=== PATIENT | female | born 1955 | race Caucasian/White ===

== ENCOUNTER → 2018-05-13 | Day surgery (SDC) | payer MEDICARE ==
[~2018-05-13] VITALS: Ht 167.6 cm; Wt 79.4 kg
[~2018-05-13] MED LIST: DARVOCET N 1001 TAB PO; PANTOPRAZOLE SO40 MG PO; PLAVIX75 MG PO; ZOLPIDEM TART10 MG PO
--- NOTE | ~2018-05-13 | O ---
[place], [place] OPERATIVE NOTE NAME: BEAR BARROW UNIT #: [id number] ROOM: DOCTOR: KATHE DELUCA MD BIRTHDATE: [birth year] DOS: 05/13/2018 PREOPERATIVE DIAGNOSIS: Cataract, right eye. POSTOPERATIVE DIAGNOSIS: Cataract, right eye. OPERATION: Extracapsular cataract extraction by phacoemulsification with posterior chamber intraocular lens implantation, right eye. ANESTHESIA: Monitored standby. OPERATIVE FINDINGS AND PROCEDURE: 2% Xylocaine topical anesthetic gel was applied to the eye in the preop area. The patient was taken to the operating room and prepped and draped in the standard fashion for sterile intraocular surgery. A time out procedure was performed verifying correct patient, correct site and corrects lens with Roma Deluca M.D. The operating microscope was swung into position and the lid speculum was inserted. Using a Mara paracentesis blade, a paracentesis was made through clear cornea. Viscoelastic was used to fill the anterior chamber. Using a metal keratome a 2.4 mm self-sealing clear corneal cataract incision was made temporally at the limbus. Using a pre-bent 25 gauge cystotome needle, a standard continuous curvilinear capsulorrhexis was performed. The anterior capsule was removed with forceps. The lens nucleus was hydrodissected and phacoemulsified in the posterior chamber. Cortical material was removed with the irrigation aspiration hand piece and the posterior capsule was then polished with a curet under irrigation. The posterior chamber and capsular bag were filled with viscoelastic. A posterior chamber intraocular lens manufactured by: [employer], Model #[id number], and 23.5 diopters in strength were then inserted into the posterior chamber and within the capsular bag using the lens cartridge and injector system. Viscoelastic was removed using the irrigation aspiration handpiece. The anterior chamber was filled with balanced salt solution through the paracentesis. Both the paracentesis site and cataract incisions were hydrated with BSS and verified to be water-tight and self-sealing. Cefuroxime 1 mg/0.1 mL was injected into the anterior chamber through the paracentesis site. The incision checked to be water-tight using a Weck-Simona sponge. The integrity of the cataract wound and ocular tension were checked. Lid speculum and drapes were removed. The patient was transferred from the operating room to the recovery room in satisfactory condition. [place], [place] OPERATIVE NOTE NAME: BEAR BARROW UNIT #: [id number] ROOM: DOCTOR: KATHE DELUCA MD BIRTHDATE: [birth year] KATHE DELUCA MD CM:OPRECORD:OPERATIVE NOTE 1008 [id number] KATHE DELUCA MD 05/13/18 1014 interface
[2018-05-13 08:45] VITALS: BP 157/81
[2018-05-13 10:05] VITALS: BP 146/85
[2018-05-13 10:20] VITALS: BP 160/92
[2018-05-13 10:34] VITALS: BP 152/77
== END | disposition home or self-care (01) ==
LOC: SDC 05-08 08:00
DX: H25.811 Combined forms of age-related cataract, right eye (principal); K21.9 Gastro-esophageal reflux disease without esophagitis; E78.5 Hyperlipidemia, unspecified; E66.9 Obesity, unspecified; Z68.28 Body mass index [BMI] 28.0-28.9, adult; Z88.0 Allergy status to penicillin; Z79.899 Other long term (current) drug therapy; Z86.73 Personal history of transient ischemic attack (TIA), and cerebral infarction without residual deficits; Z90.710 Acquired absence of both cervix and uterus; Z85.43 Personal history of malignant neoplasm of ovary; Z98.890 Other specified postprocedural states; Z83.3 Family history of diabetes mellitus; Z82.49 Family history of ischemic heart disease and other diseases of the circulatory system

== ENCOUNTER 2020-01-15 17:54 | Emergency (ER) | payer OTHER ==
[~2020-01-15] VITALS: Wt 86.2 kg
[2020-01-15 17:59] VITALS: BP 160/98
[2020-01-15 18:19] LABS: BASO # 0.1 10*3/uL (0.0-0.1); BASO % 1.2 % (0.0-1.0); EOS # 0.1 10*3/uL (0.0-0.4); EOS % 1.9 % (1.0-4.0); HEMATOCRIT 42.5 % (37.0-47.0); LYMPH # 1.5 10*3/uL (1.3-4.4); LYMPH % 21.4 % (27.0-41.0); MEAN CELL VOLUME 89.3 fl (81.0-99.0); MEAN CORPUSCULAR HGB 28.4 pg (27.0-31.0); MEAN CORPUSCULAR HGB CONC 31.8 g/dl (33.0-37.0); MEAN PLATELET VOLUME 11.5 fl (9.6-12.3); MONO # 0.5 10*3/uL (0.1-1.0); NEUT # 4.7 10*3/uL (2.3-7.9); NEUT % 68.2 % (47.0-73.0); PLATELET COUNT AUTOMATED 222 10*3/uL (130-400); RED BLOOD COUNT 4.76 10*6/uL (4.10-5.10); RED CELL DISTRI WIDTH 13.7 % (0-14.5); WHITE BLOOD COUNT 6.9 10*3/uL (4.8-10.8)
[2020-01-15 18:34] LABS: ALBUMIN 3.9 gm/dl (3.1-4.5); ALKALINE PHOSPHATASE 70 U/L (45-117); BUN 13 mg/dl (7-24); CHLORIDE 107 mmol/L (98-107); CREATININE 0.77 mg/dL (0.55-1.02); POTASSIUM 3.9 mmol/L (3.5-5.1); SGOT/AST 11 IU/L (3-35); SGPT/ALT 15 U/L (12-78); SODIUM 141 mmol/L (136-145); TOTAL PROTEIN 7.3 gm/dL (6.4-8.2)
[2020-01-15 19:37] LABS: BILIRUBIN Negative (Negative); BLOOD Trace-Lysed (Negative); CLARITY Cloudy (Clear); COLOR Yellow (Yellow); GLUCOSE Negative (Negative); KETONE Trace (Negative); LEUKO ESTERASE 1+ (Negative); NITRITE Negative (Negative); PH 5.5 (4.5-8.0); SPECIFIC GRAVITY 1.025 (1.001-1.030)
[2020-01-15 20:01] LABS: BACTERIA 2+; EPITHELIAL CELLS 41-50; MUCOUS 1+
[2020-01-15] MEDS ORDERED: CEPHALEXIN500 M1 PO (21:20)
[2020-01-15] MEDS ORDERED: PERCOCET 5-3251 EACH PO (21:20)
== END 2020-01-15 21:25 | disposition home or self-care (01) ==
LOC: ED 17:54
PROVIDERS: Student in an Organized Health Care Education/Training Program
DX: N39.0 Urinary tract infection, site not specified (principal); N20.0 Calculus of kidney; Z88.0 Allergy status to penicillin; Z79.899 Other long term (current) drug therapy

== ENCOUNTER 2021-11-24 15:09 | Emergency (ER) | payer OTHER ==
[~2021-11-24] VITALS: Ht 157.4 cm; Wt 77.1 kg
[~2021-11-24 15:09] MED LIST changes: +CEPHALEXIN500 M1 PO; +PERCOCET 5-3251 EACH PO
[2021-11-24 15:33] VITALS: BP 156/99
[2021-11-24 16:04] LABS: BASO # 0.1 10*3/uL (0.0-0.1); BASO % 0.8 % (0.0-1.0); EOS % 0.5 % (1.0-4.0); HEMATOCRIT 44.8 % (37.0-47.0); LYMPH % 15.4 % (27.0-41.0); MEAN CELL VOLUME 84.5 fl (81.0-99.0); MEAN CORPUSCULAR HGB 26.6 pg (27.0-31.0); MEAN CORPUSCULAR HGB CONC 31.5 g/dl (33.0-37.0); MEAN PLATELET VOLUME 12.1 fl (9.6-12.3); MONO # 0.5 10*3/uL (0.1-1.0); MONO % 7.4 % (3.0-9.0); NEUT % 75.7 % (47.0-73.0); PLATELET COUNT AUTOMATED 246 10*3/uL (130-400); RED CELL DISTRI WIDTH 15.1 % (0-14.5); WHITE BLOOD COUNT 6.6 10*3/uL (4.8-10.8)
[2021-11-24 16:20] LABS: ALKALINE PHOSPHATASE 80 U/L (45-117); BUN 12 mg/dl (7-24); CHLORIDE 112 mmol/L (98-107); CREATININE 0.58 mg/dL (0.55-1.02); LIPASE 55 U/L (73-393); POTASSIUM 3.8 mmol/L (3.5-5.1); SGOT/AST 12 IU/L (3-35); SGPT/ALT 18 U/L (12-78); SODIUM 144 mmol/L (136-145); TOTAL PROTEIN 7.6 gm/dL (6.4-8.2)
[2021-11-24] MEDS ORDERED: REGLAN10 M1 PO (16:35)
== END 2021-11-24 16:49 | disposition home or self-care (01) ==
LOC: ED 15:09
PROVIDERS: Physician Assistant
DX: U07.1 COVID-19 (principal); Z79.899 Other long term (current) drug therapy; Z90.710 Acquired absence of both cervix and uterus